=== PATIENT | male | born 1985 | race Caucasian/White ===

== ENCOUNTER 2020-12-13 14:47 | Emergency (ER) | payer MEDICAID ==
[~2020-12-13] VITALS: Ht 177.8 cm; Wt 72.7 kg
[2020-12-13] MEDS ORDERED: CloNIDine HCL 0.1 MG TABLET PO ONE (15:45)
[2020-12-13] MEDS ORDERED: ONDANSETRON HCL 4 MG TABLET PO ONE (15:45)
[2020-12-13] MEDS ORDERED: KETOROLAC TROMETHAMINE 30 MG/ML VIAL IM ONE (15:45)
[2020-12-13 16:54] VITALS: BP 118/75
== END 2020-12-13 17:20 | disposition home or self-care (01) ==
LOC: EMS 14:47
DX: F11.23 Opioid dependence with withdrawal (principal); M79.10 Myalgia, unspecified site; R11.2 Nausea with vomiting, unspecified; F17.210 Nicotine dependence, cigarettes, uncomplicated; F12.90 Cannabis use, unspecified, uncomplicated
CPT/HCPCS: 96372; 99283; J1885; Q0162

== ENCOUNTER 2020-12-15 14:38 | Emergency (ER) | payer MEDICAID ==
[~2020-12-15] VITALS: Ht 177.8 cm; Wt 72.7 kg
[2020-12-15] MEDS ORDERED: ONDANSETRON HCL 4 MG TABLET PO ONE (15:15)
[2020-12-15] MEDS ORDERED: KETOROLAC TROMETHAMINE 30 MG/ML VIAL IM ONE (15:15)
[2020-12-15] MEDS ORDERED: CloNIDine HCL 0.2 MG TABLET PO ONE (15:15)
[2020-12-15 16:00] VITALS: BP 120/70
== END 2020-12-15 16:45 | disposition home or self-care (01) ==
LOC: EMS 14:42
DX: F11.23 Opioid dependence with withdrawal (principal); L03.113 Cellulitis of right upper limb; F17.210 Nicotine dependence, cigarettes, uncomplicated; F12.90 Cannabis use, unspecified, uncomplicated; F15.90 Other stimulant use, unspecified, uncomplicated
CPT/HCPCS: 96372; 99283; J1885; Q0162

== ENCOUNTER 2021-06-01 03:51 | Emergency (ER) | payer MEDICAID ==
[~2021-06-01] VITALS: Ht 175.3 cm; Wt 68.2 kg
[2021-06-01 05:04] VITALS: BP 124/69
[2021-06-01] MEDS ORDERED: BACITRACIN 0.9 GM PACKET OINTMENT TP ONE (06:30)
== END 2021-06-01 07:01 | disposition home or self-care (01) ==
LOC: EMS 03:51
DX: L30.9 Dermatitis, unspecified (principal); F11.988 Opioid use, unspecified with other opioid-induced disorder; F15.90 Other stimulant use, unspecified, uncomplicated; F17.210 Nicotine dependence, cigarettes, uncomplicated; F12.90 Cannabis use, unspecified, uncomplicated; Z59.00 Homelessness unspecified
CPT/HCPCS: 99282; Z7502; Z7610

== ENCOUNTER 2021-11-30 23:48 | Emergency (ER) | payer MEDICAID ==
[~2021-11-30] VITALS: Ht 175.3 cm; Wt 90.9 kg
[2021-12-01] MEDS ORDERED: IBUP-2070 PO (01:10)
[2021-12-01 01:17] VITALS: BP 127/69
== END 2021-12-01 01:57 | disposition home or self-care (01) ==
LOC: EMS 23:51
DX: M70.22 Olecranon bursitis, left elbow (principal); F17.210 Nicotine dependence, cigarettes, uncomplicated; F12.90 Cannabis use, unspecified, uncomplicated; F15.90 Other stimulant use, unspecified, uncomplicated; F11.90 Opioid use, unspecified, uncomplicated; Y93.84 Activity, sleeping
CPT/HCPCS: 99282; Z7502